=== PATIENT | female | born 1975 | race Caucasian/White ===

== ENCOUNTER 2022-02-11 17:23 | Emergency (ER) | payer SELFPAY ==
[~2022-02-11] VITALS: Ht 154.9 cm; Wt 63.5 kg
--- NOTE | 2022-02-11 17:30 | NUR ---
MD at bedside, medical screening exam in progress.
[2022-02-11] MEDS ORDERED: AZIT250T PO (18:33)
[2022-02-11 18:47] VITALS: BP 125/70
--- NOTE | 2022-02-11 18:47 | NUR ---
Patient discharged to home in stable condition. Written and verbal after care instructions given. Patient verbalizes understanding of instructions. Stressed follow up or return to ER for worsening s/s.
== END 2022-02-11 18:47 | disposition home or self-care (01) ==
LOC: ER 17:23
DX: R05.9 Cough, unspecified (principal); F17.210 Nicotine dependence, cigarettes, uncomplicated; M06.9 Rheumatoid arthritis, unspecified; Z87.440 Personal history of urinary (tract) infections; F17.200 Nicotine dependence, unspecified, uncomplicated
CPT/HCPCS: 71045; A4663